=== PATIENT | female | born 1965 | race Caucasian/White ===

== ENCOUNTER 2017-03-06 04:50 | Emergency (ER) | payer OTHER, BC ==
--- NOTE | 2017-03-06 07:02 | ER ---
ADMIT: 03/06/2017 RM/LOC: ER [facility] MR#: [id number] [address] [id number] VERA PINTO [address] [place] [address] Emergency Room Report SEX: F AGE: 52 : 1965 DATE: 03/06/2017 The patient is a 52-year-old female, employe at [employer], injured her right long finger tip in a peeling machine, sustained a small volar tuft laceration 2 cm and associated subungual hematoma. X-ray negative for fracture. Wound was anesthetized with Xylocaine 1% digital block, thoroughly cleansed, irrigated, closed 5-0 Prolene x3, bacitracin, Band-Aid. Subungual hematoma vented. Advised to keep clean and dry. Soap and water, triple antibiotic. Follow up Dr. Das in 7-10 days for suture removal. Patient may return to work. Ramsey Bentley MD/ laurence JOB #: [id number] CC: Ramsey Bentley MD, Attending Physician Yesenia Das MD, Family Physician Yesenia Das MD
== END 2017-03-06 05:45 | disposition home or self-care (01) ==
LOC: ER 04:50
PROC: 0HQFXZZ Repair Right Hand Skin, External Approach (ICD-10-PCS; principal; 2017-03-06)
DX: S61.312A Laceration without foreign body of right middle finger with damage to nail, initial encounter (principal); S60.131A Contusion of right middle finger with damage to nail, initial encounter; F32.9 Major depressive disorder, single episode, unspecified; Z79.899 Other long term (current) drug therapy; Z23 Encounter for immunization; W31.89XA Contact with other specified machinery, initial encounter; Y92.69 Other specified industrial and construction area as the place of occurrence of the external cause